=== PATIENT | male | born 1950 | race Caucasian/White ===

== ENCOUNTER → 2017-11-12 16:54 | Outpatient (CLI) | payer MEDICARE ==
[2017-11-12 17:42] LABS: CHOL - HDL RATIO 3.9 ratio (2.3-4.9); LDL-HDL RATIO 2.6 ratio (1.5-3.5)
== END | disposition home or self-care (01) ==
LOC: D.LABREF 16:54
PROVIDERS: Nurse Practitioner Adult Health
DX: E78.5 Hyperlipidemia, unspecified (principal)